=== PATIENT | male | born 1960 | race Caucasian/White ===

== ENCOUNTER 2017-06-11 11:05 | Emergency (ER) | payer OTHER ==
[~2017-06-11] VITALS: Ht 170.2 cm; Wt 92.0 kg
[2017-06-11 11:07] VITALS: BP 122/78
[2017-06-11] MEDS ORDERED: DIPH,PERTUSS(ACELL),TET VAC/PF 0.5 ML IM-VACC ONE ×2 (12:00→12:28)
[2017-06-11] MEDS ORDERED: LIDOCAINE 1%, 20ML SQ ONE (12:00)
[2017-06-11] MEDS ORDERED: LISI5TAB7 PO (12:13)
[2017-06-11] MEDS ORDERED: LOVA10TA PO (12:13)
[2017-06-11] MEDS ORDERED: LIDOCAINE 1%, 20ML ONE (12:16)
== END 2017-06-11 13:31 | disposition home or self-care (01) ==
LOC: EDSEX 11:05 → ED 13:20
DX: S61.211A Laceration without foreign body of left index finger without damage to nail, initial encounter (principal); I10 Essential (primary) hypertension; W26.8XXA Contact with other sharp object(s), not elsewhere classified, initial encounter; Y93.89 Activity, other specified; Y92.69 Other specified industrial and construction area as the place of occurrence of the external cause; Y99.0 Civilian activity done for income or pay
CPT/HCPCS: 12001; 90471; 90715

== ENCOUNTER 2017-06-21 15:16 | Emergency (ER) | payer OTHER ==
[~2017-06-21] VITALS: Ht 170.2 cm; Wt 95.0 kg
[~2017-06-21 15:16] MED LIST: LISI5TAB7 PO; LOVA10TA PO
[2017-06-21 15:18] VITALS: BP 118/75
== END 2017-06-21 16:12 | disposition home or self-care (01) ==
LOC: ED 16:06
DX: S61.211D Laceration without foreign body of left index finger without damage to nail, subsequent encounter (principal); I10 Essential (primary) hypertension; X58.XXXD Exposure to other specified factors, subsequent encounter
CPT/HCPCS: 99281